=== PATIENT | female | born 1960 | race Caucasian/White ===

== ENCOUNTER 2025-06-04 05:27 | Observation (INO) ==
--- NOTE | 2025-04-22 14:09 | PAT Medication Instructions ---
Medication Instructions Date of Service April 22, 2025 Home Medications Lactobacillus acidophilus 10 billion cell capsule (Probiotic) 10,000 mmu cells PO DAILY albuterol sulfate 90 mcg/actuation aerosol inhaler 1 inh inhalation QID PRN Wheezing cholecalciferol (vitamin D3) 125 mcg (5,000 unit) tablet (Vitamin D3) 125 mcg PO DIRECTED gabapentin 600 mg tablet 600 mg PO TID ibuprofen 200 mg tablet (Advil) 200 mg PO Q6H PRN Pain levothyroxine 88 mcg tablet 88 mcg PO QAM omeprazole 20 mg capsule,delayed release 20 mg PO QAM MEDICATION INSTRUCTIONS: Continue as directed albuterol sulfate 90 mcg/actuation aerosol inhaler 1 inh inhalation QID PRN Wheezing (use if needed; BRING TO HOSPITAL) ASK your surgeon for instructions ibuprofen 200 mg tablet (Advil) 200 mg PO Q6H PRN Pain DO NOT take the morning of surgery cholecalciferol (vitamin D3) 125 mcg (5,000 unit) tablet (Vitamin D3) 125 mcg PO DIRECTED Lactobacillus acidophilus 10 billion cell capsule (Probiotic) 10,000 mmu cells PO DAILY Take morning of surgery With a small sip of water, OTHERWISE NOTHING TO EAT OR DRINK AFTER MIDNIGHT: gabapentin 600 mg tablet 600 mg PO TID levothyroxine 88 mcg tablet 88 mcg PO QAM omeprazole 20 mg capsule,delayed release 20 mg PO QAM Take evening before surgery gabapentin 600 mg tablet 600 mg PO TID Other Notes If you have any questions please call us at [phone] or [phone] or [phone] or [phone]
--- NOTE | 2025-04-29 10:01 | Anesthesiology Consultation ---
Date of Service April 29, 2025 Assessment & Plan (1) Encounter for pre-operative examination: Chart Review Chart Review: Acceptable Risk for Surgery (pending surgeon ordered PCP clearance ) and Patient NOT seen in Pre Admission Testing - Awaiting PCP clearance 05/07/25 (Clarissa GUZMAN- [place])- please send labs and EKG for PCP review Pt currently scheduled as 23 hours observation. If surgeon decides to change patient to [facility], patient would be acceptable risk for TKA, pending patient is motivated, has good support and surgeon's office completes [facility] preop requirements. Per PAT appt on 04/29/25, no recent illness/disease exposures, illness related symptoms, or recent illness/disease positive tests. Will leave to surgeon's discretion if preop Covid testing needed Teaching & Discussion Pre-Anesthesia Teaching/Discussion Notes: Instructed NPO after midnight before surgery,except medications with 15 cc of water. Medication instructions provided according to the PAT guidelines. History Surgery Operation Date: 06/04/25 07:00 Proposed Procedures p Right Total Knee Arthroplasty - Fabricio Alves MD Height/Weight Height: 5 ft 2 in Weight: 91.3 kg Allergies Allergy/AdvReac Type Severity Reaction Status Date / Time hydromorphone [From Dilaudid] Allergy Severe see below Verified 04/22/25 13:05 morphine Allergy Severe Vomiting Verified 04/22/25 13:05 Medications Home Medications Medication Instructions Recorded Confirmed Last Taken Lactobacillus acidophilus 10 10,000 mmu cells PO DAILY 04/22/25 04/22/25 Unknown billion cell capsule (Probiotic) albuterol sulfate 90 mcg/actuation 1 inh inhalation QID PRN Wheezing 04/22/25 04/22/25 Unknown aerosol inhaler cholecalciferol (vitamin D3) 125 125 mcg PO DIRECTED 04/22/25 04/22/25 Unknown mcg (5,000 unit) tablet (Vitamin D3) gabapentin 600 mg tablet 600 mg PO TID 04/22/25 04/22/25 Unknown ibuprofen 200 mg tablet (Advil) 200 mg PO Q6H PRN Pain 04/22/25 04/22/25 Unknown levothyroxine 88 mcg tablet 88 mcg PO QAM 04/22/25 04/22/25 Unknown omeprazole 20 mg capsule,delayed 20 mg PO QAM 04/22/25 04/22/25 Unknown release Past Medical History Medical History Chronic back pain GERD (gastroesophageal reflux disease) well controlled and stable Heel spur Left foot- does cause pain- PT not effective History of COVID-2019 > continues to have chronic cough ever since, prn inh for this, no asthma dx per pt History of postoperative nausea and vomiting Hypothyroidism Osteoarthritis Scar tissue in lung per pt from covid Sleep apnea cpap Slow to wake up after anesthesia Exercise / Class Metabolic Activity II 4-5 Yardwork/Stairs/Walk up hill (one flight of stairs - no chest pain or SOB ) Past Surgical History Surgical History History of section x3 History of cholecystectomy History of colonoscopy History of esophagogastroduodenoscopy (EGD) History of partial hysterectomy History of rectal fissure botox surgical procedure to correct this Past Anesthesia History No Hx of Anesthesia Complications (with exception to PONV and slow to wake - just groggy- no reintubation or ICU stay ) and No Family Hx of Anesthesia Complications History of PONV History of PONV (improved with IV anti nausea medication pre, nicola and post operatively) and Hx of Motion Sickness Social History Smoking Status: Current every day smoker Smoking cigarettes per day: 5 cigs per day> advised npo Do You Dip or Chew Tobacco: No Hx Alcohol Use: No Hx Substance Use: No substance use type: does not use Review of Systems - Hx of cough- chronic since Covid infection (2019) - stable Patient denies chest pain, shortness of breath, dyspnea on exertion, wheezing, palpitations. No hx of seizures, stroke, [place]. No hx of blood clots or blood transfusions Physical Exam Vital Signs VITALS BP 117/75 P 72 TEMP 98.3 SP02 95% RESP 16 Constitutional no acute distress ENMT Mouth: no TMJ clicking Thyromental Distance: > or= 3.5 Finger Breadths (3.5) Mallampati Class: III Neck + short neck, + thick neck and + limited neck extension (mild) Respiratory normal respiratory effort; no respiratory distress Auscultation: lungs clear to auscultation bilaterally; no wheezes Cardiovascular Rate/Rhythm: regular rate and regular rhythm Heart Sounds: no murmur Vessels: no carotid bruit Musculoskeletal Spine: no pain with cervical ROM Extremities: extremities normal to inspection Psychiatric Orientation: alert Lab Results Anesthesia Preop Results Results Anesthesia Widget: WBC 5.46 K/ul (4.8-10.8) 04/29/25 Hgb 12.7 g/dl (12.0-16.0) 04/29/25 Hct 37.6 % (37.0-47.0) 04/29/25 Plt 168 K/uL (130-400) 04/29/25 Na 143 mmol/L (136-145) 04/29/25 K 3.6 mmol/L (3.5-5.1) 04/29/25 Cl 108 mmol/L (98-107) H 04/29/25 CO2 30 mmol/L (21-32) 04/29/25 BUN 9 mg/dl (6-23) 04/29/25 Creat 0.61 mg/dl (0.6-1.2) 04/29/25 Glucose Level 86 mg/dl (70-99(Fasting)) 04/29/25 PT 10.3 Seconds (9.0-12.0) 04/29/25 PTT 26 Seconds (21-31) 04/29/25 INR 0.9 (0.9-1.1) 04/29/25 Urine Color Yellow 04/29/25 Urine Appearance Clear (Clear) 04/29/25 Urine pH 8.5 (4.5-7.5) H 04/29/25 Urine Specific [place] 1.009 (1.000-1.030) 04/29/25 Urine Protein Negative (Negative) 04/29/25 Urine Glucose (UA) Negative (Negative) 04/29/25 Urine Ketones Negative (Negative) 04/29/25 Urine Blood Negative (Negative) 04/29/25 Urine Nitrite Negative (Negative) 04/29/25 Urine Bilirubin Negative (Negative) 04/29/25 Urine Urobilinogen Negative (Negative) 04/29/25 Urine Leukocyte Esterase Trace (Negative) H 04/29/25 Urine WBC (Auto) 0-5 /hpf (0-5) 04/29/25 Urine RBC (Auto) 0-2 /hpf (0-2) 04/29/25 Urine Hyaline Casts (Auto) 0-2 /lpf (0-2) 04/29/25 Urine Epithelial Cells (Auto) 0-2 /hpf (0-2) 04/29/25 Urine Bacteria (Auto) None Seen (None Seen) 04/29/25 Blood Type A Positive 04/29/25 Antibody Screen NEGATIVE 04/29/25 Testing Electrocardiogram Date: 04/29/25 Findings: + NSR @ (72bpm ) Low voltage QRS Poor R wave progression, consider anterior IL vs lead placement vs LVH (Discussed with Dr. Varner- good functional status, no significant known cardiac history; patient seeing PCP for clearance prior to surgery; no further/additional follow up needed at this time) Echocardiogram Date: 12/15/20 EF: 55-59% LV Function: normal RWMA: + none Other Findings: + diastolic dysfunction (Grade 1); no LVH Mild MR. Mild TR. Mild AR No pericardial effusion Normal IVC size and collapsibility with inspiration indicates a normal right atrial pressure of 3 mmHg Estimated PASP is [address] 02/17/2025 = redemonstration of bilateral groundglass densities without interval change from prior study, likely sequelae of prior COVID-pneumonia. No new focal consolidation.
--- NOTE | 2025-06-04 05:24 | History & Physical Bridge Note ---
Date of Service June 04, 2025 History & Physical Bridge Note I have examined the patient, reviewed the History & Physical and in the interval since the performance of the History & Physical I have noted the following changes of clinical significance: consent and site verified.emphasized the need for PT to avoid arthrofibrosis/DVT-PE and wound care to avoid infection .no changes noted
[2025-06-04] MEDS: LR 500ML BOLUS, THEN 15ML/HR IV SCH (06:13)
[2025-06-04] MEDS: LR 60ML/HR IV SCH (06:13)
[2025-06-04] MEDS ORDERED: DexMEDEtomidine HCL IV 100 MCG/ML VIAL IV ONE (06:23)
[2025-06-04] MEDS ORDERED: MIDAZOLAM HCL 1 MG/ML 2ML VIAL ONE (06:23)
[2025-06-04] MEDS ORDERED: LIDOCAINE 2% 2 ML VIAL/AMP(20MG/ML) INFIL ONE (06:23)
[2025-06-04] MEDS ORDERED: ONDANSETRON INJ 2 MG/ML 2 ML VIAL IV PRN ×2 (06:29→11:15)
[2025-06-04] MEDS ORDERED: PROMETHAZINE HCL 6.25 MG in SODIUM CHLORIDE 0.9% 50 ML IV PRN (06:29)
[2025-06-04] MEDS ORDERED: ATROPINE SULFATE 0.1 MG/ML 10ML SYR IV PRN (06:29)
[2025-06-04] MEDS ORDERED: PROPOFOL IV EMULSION 10 MG/ML 100 ML VIAL IV ONE ×4 (06:34→09:30)
[2025-06-04] MEDS ORDERED: BUPIVACAINE 0.5 % 5 MG/1 ML PF 10ML VIAL ONE (06:37)
[2025-06-04] MEDS ORDERED: BUPIVACAINE 0.25% PF 30 ML VIAL ONE (06:37)
[2025-06-04] MEDS: TRANEXAMIC ACID 1,000 MG **IV Pre-op IV SCH (06:42)
[2025-06-04] MEDS ORDERED: GLYCOPYRROLATE 0.2 MG/ML VIAL ONE (07:18)
[2025-06-04] MEDS ORDERED: DEXAMETHASONE SOD INJ 4 MG/ML VIAL ONE (07:21)
[2025-06-04] MEDS: ORTHO JOINT ANESTHETIC ONE (07:26)
[2025-06-04] MEDS ORDERED: ePHEDrine sulfate 50 MG/5 ML SYR ONE (07:30)
[2025-06-04] MEDS: ROPIV 0.5% 246mg, Ketorolac 30mg, EPINEPHrine 0.5mg in NSS INFIL SCH (08:10)
--- NOTE | 2025-06-04 08:34 | Post Operative Brief Note ---
Immediate Post Op Note Date of Surgery June 04, 2025 Pre & Post Diagnosis Operation Date: 06/04/25 07:00 <No data on this case meets the specified criteria> Osteoarthritis right knee with flexion varus deformity pre and postop diagnosis same I identified the patient and participated in the time-out.: Yes Procedure Operation Date: 06/04/25 07:00 <No data on this case meets the specified criteria> Cemented right total knee replacement Surgeon Fabricio Alves MD Vice President [employer] [facility] no resident or fellow available Estimated Blood Loss 20 Findings Consistent with Post-Op Diagnosis Grade 4 disease medial compartment marked varus deformity flexion varus patellofemoral disease grade 4 Fluids 1400 cc Complications None
--- NOTE | 2025-06-04 08:38 | Operative Report ---
Post Operative Report Pre & Post Diagnosis Operation Date: 06/04/25 07:00 <No d osteoarthritis right knee with flexion varus deformity isak on this case meets the specified criteria> I identified the patient and participated in the time-out.: Yes Procedure Operation Date: 06/04/25 07:00 <No data on this case meets the specified criteria> Cemented right total knee replacement Surgeon Fabricio Alves MD [employer] no resident or fellow available Estimated Blood Loss 20 Findings Consistent with Post-Op Diagnosis Severe disease medial compartment bipolar patellofemoral joint lateral compartment relatively well-preserved flexion varus deformity Fluids 1400 cc Specimens Bone pathology Drains None Complications None Description of Procedure After the patient was appropriate notified site verified consent verified antibiotics and TXA confirmed as being given the right lower extremity was prepped and draped use routine fashion. Tourniquet was inflated to 275 mmHg after exsanguination limb or other Esmarch fashion for total of 50 minutes. Exposure utilized parapatellar thyrotomy performed patella was incarcerated with contracture was released. Synovectomy completed medial release completed excellent exposure obtained menisci excised. Osteophytes around the margin of the femur excised. Distal femur entered digits resected tibia subluxated posterior horn menisci were excised. Distal femur cut 11 mm proximal tibia cut 4 mm extension gap was good with a 5 spacer. Tibia was sized to a 3 femur was sized to a 5 appropriate cutting block applied to the femur and anterior posterior, chamfer cuts made flexion gap checked was excellent posterior capsule injected with local anesthetic. Box cut then made a size 5 fit well and narrow would be better. The tibia was then broached reamed to a size 3 and then the 5 x 5 poly spacer trial was placed everything tracked well knee was stable. Alignment was excellent. Patella was then everted it was quite small and was resected leaving roughly 15 mm 32 button drill hole trial was then seated tracked well. Ortho mix was then injected about the knee all trial elements were removed the knee was then soaked in Betadine for 3 minutes and irrigated extremitas then cemented in position tibia femur patella in that order at 12 minutes the tourniquet deflated at 14 minutes knee was inspected no cement removal was required and he was irrigated with Pulsavac Betadine and the permanent liner seated the knee reduced and closed at 40 degrees of flexion with #2 Vicryl 2-0 Vicryl and stainless steel clips appropriate dressing was applied the patient transferred to recovery in satisfactory addition he tolerated the procedure well. Patient's was contacted. DVT PE prophylaxis to begin tomorrow. Summary of implants ATT UNE total knee system [employer] size right narrow femur posterior cruciate substituting size 3 rotating tibial tray platform tray size 5 x 5 poly posterior cruciate substituting with 32 mm patella 2 bags of [place] G cement. I attest to the content of the Intraoperative Record and any orders documented therein. Any exceptions are noted below.
--- NOTE | 2025-06-04 08:38 | Orthopedic Progress Note ---
Date of Service June 04, 2025 Orthopedic Progress Note Patient underwent right cemented total knee replacement tolerated the procedure well. She denies chest pain shortness of breath fever chills nausea vomiting headache. Vital signs are stable she is afebrile. Neurovascular check from sciatic nerve is normal. X-ray pending. Family contacted. Continue care pathway. Initiate DVT PE prophylaxis tomorrow.
--- NOTE | 2025-06-04 08:40 | Operative Report ---
Post Operative Report Pre & Post Diagnosis Operation Date: 06/04/25 07:00 Pre-Op Diagnosis: Right Knee Osteoarthritis Post-Op Diagnosis: Right Knee Osteoarthritis I identified the patient and participated in the time-out.: Yes Procedure Operation Date: 06/04/25 07:00 Actual Procedures p Right Total Knee Arthroplasty(Right) - Fabricio Alves MD Surgeon NAEEM Alves MD Glass Novelty Maker [facility] no resident or fellow available Estimated Blood Loss 20 Findings Consistent with Post-Op Diagnosis see operative report Specimens see operative report Drains none Complications none Disposition Accompanied Patient To Recovery: Yes Indications This 64 year old female presented to the office for complaints of persisting right knee pain. She had tried conservative care measures without improvement. She elected to proceed with surgical intervention after being educated about potential risks and outcomes. Preoperative imaging was obtained. Description of Procedure The patient was administered a spinal anesthetic and then taken to the operating room where she was given sedation. She was prepped and draped in the usual sterile fashion. Please see Dr. Alves's operative report for specifics of the procedure. I was present for the entire case from initial patient positioning through final wound closure. Assistance was provided for tissue retraction, hemostasis, trial implant placement, final implant placement, and final wound closure. The patient was taken to the recovery room in satisfactory condition. I attest to the content of the Intraoperative Record and any orders documented therein. Any exceptions are noted below.
--- NOTE | 2025-06-04 09:30 | XRay Report ---
XR knee RT 1 or 2V routine CLINICAL HISTORY: S/P R TKA COMPARISON: 02/03/2025 FINDINGS: Right knee prosthesis shows no hardware complication. There is expected soft tissue gas. S kin yeimi are present. IMPRESSION: Unremarkable postoperative exam. ACT 112: Negative or not required by law. Electronically signed by: Awais Childs M.D. 06/04/2025 9:29 AM
[2025-06-04] MEDS ORDERED: MAGNESIUM HYDROXIDE SUSP 30 ML UDC PO PRN (10:56)
[2025-06-04] MEDS ORDERED: HYDROmorphone INJ 0.5 MG/0.5 ML SYR IV PRN (10:56)
[2025-06-04] MEDS ORDERED: diphenhydrAMINE 50 MG/ML VIAL IV PRN (10:56)
[2025-06-04] MEDS ORDERED: ALUMINUM/MAGNESIUM SUSP 30 ML UDC PO PRN (10:56)
[2025-06-04] MEDS ORDERED: NALOXONE HCL 0.4 MG/1 ML VIAL/CARP IV PRN (10:56)
[2025-06-04] MEDS ORDERED: ALBUTEROL HFA 8 GM INHALER INH PRN (11:00)
[2025-06-04] MEDS ORDERED: METOCLOPRAMIDE HCL INJ 5 MG/ML 2 ML VIAL IV PRN (11:00)
[2025-06-04] MEDS: SODIUM CHLORIDE 0.9% 1,000 ML IV SCH (11:33)
--- NOTE | 2025-06-04 11:44 | Discharge Summary ---
Date of Service June 05, 2025 Admission HPI Per Admitting Provider Right knee pain Osteoarthritis with flexion varus deformity. Principal Diagnosis Osteoarthritis right knee status post cemented right total knee replacement Discharge Data Allergies Allergy/AdvReac Type Severity Reaction Status Date / Time hydromorphone [From Dilaudid] AdvReac Severe see below Verified 06/04/25 05:38 morphine AdvReac Severe Vomiting Verified 06/04/25 05:38 Vaccinations None Consultations None Procedures Performed Operation Date: 06/04/25 07:00 Actual Procedures p Right Total Knee Arthroplasty(Right) - Fabricio Alves MD Ordered Studies 06/04/25 05:00 US - OR guided needle placemen Routine Hospital Course (1) Status post right knee replacement: Plan Care pathway for right total knee replacement Total Time Total Time Spent Total Time Spent (In Minutes): 10 Discharge Plan Discharge Items Patient Disposition: Home - Home Health Services Reason For Visit: Right Knee Osteoarthritis Discharge Diagnosis: Right knee s/p total knee replacement Condition on Discharge: Good Goals: Obtain range of motion from near 0 to near 120 degrees of flexion. Activity: Per Instructions section Lifting: No more than 5 pounds Bathing: Keep incision dry Sexual Activity: Wait until after follow-up appointment Exercise/Sports: Wait until after follow-up appointment Driving/Machine Use: No driving while on narcotics and not till after 6 weeks postop. Weightbearing: Full weightbearing Weightbearing Comment: Full weightbearing Non-emergency contact: Surgeon Call non-emergency contact if: you have any medication questions, your pain is not controlled, your temperature is above 101, your wound has increased redness, your wound has increased drainage and your wound pain has increased Follow-up/Referrals: Dylan Gunter PA-C [Physician Color Mixer] - 06/19/25 1:30 pm PCP,NO [Physician] - Diet: Regular Diet Comment: Resume preop diet Addtl Attending Provider Instructions: New Medicine: * You will likely be taking one or more of these medications: 1. Percocet - Take, as directed, when you need it, every four to six hours to control your pain. 2. Iron Sulfate - Take 1x each day for the month after surgery to help you replace the blood lost during surgery. 3. Eliquis - Thins your blood to lessen the chance of forming a blood clot. * The most common side effects of pain medicine and iron are nausea and constipation. If nausea or constipation is too much of a problem or if you have any questions about your new medicines or doses, call [facility] at . We will try to help you manage these issues. "VERY IMPORTANT TO READ AND REVIEW" Blood Clots and Blood Thinning Medicine: * You are given Eliquis during the immediate post-operative period to lessen the risk of blood clots forming in your legs and/or lungs. It is usually given for six weeks after surgery. Pain: * The immediate post-operative period after knee replacement surgery is often quite painful. * You are given a prescription for pain medicine. You should take it, as directed, when you need it, especially before physical therapy and before going to bed. Pain that interferes with sleep is very common and can last several months. * You will likely need pain medicine for the first four to six weeks. It will not stop all of the pain. The pain will lessen and as you feel better, you may change to milder pain medicine such as Tylenol. * The most common side effects of pain medicine are nausea and constipation, so don't take more than you need. Physical Therapy: * You will have physical therapy two or three times each week for four to six weeks after your surgery in order to regain your knee range of motion and to retrain your knee to work properly. * It is just as important to make sure you are getting your knee perfectly straight as it is to regain your knee bend. * Taking a pain pill an hour before therapy can help you have a more productive and comfortable therapy session if needed. Home Exercise: * You were shown a series of exercises (heel props, heel slides, etc.) in the hospital. Do these exercises three to four times each day including the exercises you were shown in physical therapy. Walking: * Get up and walk several times each day. For the first four weeks, try not to stand or walk for more than one hour at a time. If you do stand or walk for more than one hour, you will not hurt anything, but your knee and leg will likely swell. * As you feel comfortable, you may change from the walker or crutches to a cane and then to independent walking. SELF CARE INSTRUCTIONS AFTER TOTAL KNEE REPLACEMENT A. You may need to continue a physical therapy program after discharge from the hospital. There are several options available to you. Your doctor will assist you in selecting the best one for you. 1. An out-patient facility 2 to 3 times a week for therapy or home therapy. 2. Continue working on all exercises taught to you in the hospital. Your goals should be to increase bending of your knee to 90 degrees and beyond and to fully straighten your knee. B. You may progress at your own pace from walking with a walker or crutches to a cane; then to no assistive devices. C. Make walking a part of your daily routine. Be up as much as comfortable with rest periods throughout the day. Rest with leg elevation is very important. Use the ice wrap frequently for the first 3-4 weeks. D. There are no restrictions on activities. You may ride in a car, shop, participate in detention attendant and all social activities. E. Wear the long elastic stockings (DINA hose) 20 hours a day for six weeks after surgery. They can be removed several times a day for laundering and for a shower. F. Do not place a pillow behind your knee when resting. A pillow at your ankle is okay. G. You may return to previous diet. VERY IMPORTANT TO READ AND REVIEW A. Take Eliquis (blood thinning medication) as directed by your doctor. B. There are a few signs you need to watch for after you are home. Call [facility] if you notice any of the followin. Increased severe knee pain. Some pain is expected especially when you exercise. 2. Increased swelling in your leg or knee; pain or swelling of the calf muscle in either lower leg. 3. Any fluid drainage from the incision. 4. Shortness of breath or chest pain. C. Please call [facility] at if you have any concerns or questions about your operation or recovery. The doctor or his nurse will return your call promptly. D. You must take antibiotics before dental work, bladder, bowel or other surgery. Call the office to obtain a prescription at least 2 days prior to your appointment. * CALL IF INCREASED PAIN, REDNESS, DRAINAGE OR FEVER GREATER THAT 101. * Sutures should be removed 12-14 days after surgery unless you are on chronic steroids, then it will be 14-18 days after surgery. Call your doctor if: * Temperature above 101 degrees F. * Pain not relieved by pain medicine ordered. * Increased drainage or redness from incision. * Notify your doctor with any questions or concerns. MEDICATIONS: * Please take your prescriptions as instructed at your pre-op appointment and/or see medication discharge instructions listed above. * If concerns develop, call your physician's office at . SPECIAL CARE INSTRUCTIONS: * Ice/Elevate as instructed. * Keep dressing clean, dry, intact. * Your surgical extremity may be discolored due to prepping agents used on the skin. A bluish-green tint is a normal variant and should not cause alarm. Call your doctor at [phone] if: * Temperature above 101 degrees * Pain not relieved by pain medicine ordered * There is increased drainage or redness from any incision * You have any unanswered questions, problems or concerns. FOLLOW UP VISIT: * If not already scheduled, please call the office at to schedule a follow-up appointment. Use your walker for ambulation ice and elevate the knee frequently to reduce pain/swelling use your knee immobilizer when out of bed today and tomorrow. It can be discontinued entirely on Monday morning. Start your Eliquis tonight. Take it 2x per day. Pending Studies at Discharge: Yes (Bone pathology) Studies:: bone pathology Stand-Alone Forms: My [facility], Smoking Cessation Medications and DC Order Prescriptions: New Eliquis 2.5 mg tablet 2.5 mg PO BID Qty: 80 0RF oxycodone-acetaminophen [Percocet] 5-325 mg tablet 2 tab PO Q6H PRN (Reason: pain) Qty: 20 0RF Rx Instructions: initial script No Action gabapentin 600 mg Tablet 600 mg PO TID levothyroxine 88 mcg Tablet 88 mcg PO QAM ibuprofen [Advil] 200 mg Tablet 200 mg PO Q6H PRN (Reason: Pain) omeprazole 20 mg Capsule,Delayed Release(Dr/Ec) 20 mg PO QAM albuterol sulfate 90 mcg/actuation Hfa Aerosol Inhaler 1 inh INHALATION QID PRN (Reason: Wheezing) cholecalciferol (vitamin D3) [Vitamin D3] 125 mcg (5,000 unit) Tablet 125 mcg PO DIRECTED Patient Comments: every other week Probiotic 10 billion cell Capsule 10,000 mmu cells PO DAILY Admission Data Admit Date/Time: 06/04/25 08:48 Attending Provider: Fabricio Alves Admit Provider: Fabricio Alves Primary Care Provider: Clarissa Yates Other Providers: [facility]
--- NOTE | 2025-06-04 11:49 | Anesthesiology Progress Note ---
Date of Service June 04, 2025 Anesthesia Post Procedure Vital Signs Vital Signs: Temp Pulse Pulse Resp BP BP Pulse Ox 06/04/25 11:20 36.4 C L 64 16 131/81 100 06/04/25 10:50 36.3 C L 69 16 115/73 96 06/04/25 10:20 36.3 C L 67 16 121/73 95 06/04/25 10:00 63 16 127/85 97 06/04/25 09:50 56 L 18 128/86 98 06/04/25 09:40 57 L 18 129/84 97 06/04/25 09:25 36.4 C L 63 18 133/86 95 06/04/25 09:15 70 18 127/84 95 06/04/25 09:05 65 20 122/81 94 06/04/25 08:55 79 18 121/83 94 06/04/25 08:45 74 22 119/76 95 06/04/25 08:37 36.4 C L 72 18 130/74 96 06/04/25 05:40 06/04/25 05:40 36.8 C 64 20 126/89 97 O2 Del Method O2 Flow Rate 06/04/25 11:20 Nasal Cannula 2 06/04/25 10:50 Nasal Cannula 2 06/04/25 10:20 Nasal Cannula 2 06/04/25 10:00 Nasal Cannula 2 06/04/25 09:50 Nasal Cannula 2 06/04/25 09:40 Nasal Cannula 2 06/04/25 09:25 Nasal Cannula 2 06/04/25 09:15 Oxymask 4 06/04/25 09:05 Oxymask 4 06/04/25 08:55 Oxymask 4 06/04/25 08:45 Oxymask 6 06/04/25 08:37 Oxymask 6 06/04/25 05:40 Room Air, CPAP 06/04/25 05:40 Room Air, CPAP Pain Intensity Right Knee: Pain Intensity: 0 Transfer of Care Handoff Completed per policy Notes Mental Status: alert / awake / arousable and participated in evaluation Patient Amnestic to Procedure: Yes Nausea / Vomiting: adequately controlled Pain: adequately controlled Airway Patency, RR, SpO2: stable & adequate BP & HR: stable & adequate Hydration State: stable & adequate Neuraxial Anesthesia: was administered and sensory block is resolving Anesthetic Complications: no major complications apparent and Pt Satisfied with anesthetic care
[2025-06-04] MEDS: DOCUSATE SODIUM 100 MG CAP PO SCH (12:25)
[2025-06-04] MEDS: KETOROLAC 30 MG/ML VIAL IV SCH (12:25)
[2025-06-04] MEDS: MULTIVITAMIN TAB PO SCH (12:25)
[2025-06-04] MEDS: ACETAMINOPHEN 500 MG TAB PO SCH (15:02)
[2025-06-04] MEDS: GABAPENTIN 600 MG TAB PO SCH (15:02)
[2025-06-04] MEDS: FERROUS GLUCONATE 324 MG TAB PO SCH (17:15)
[2025-06-04] MEDS: ASCORBIC ACID 500 MG TAB PO SCH (17:15)
[2025-06-04] MEDS: SENNA 8.6 MG TAB PO SCH (20:24)
[2025-06-05] MEDS: LEVOTHYROXINE SODIUM 88 MCG TABLET PO SCH (05:40)
[2025-06-05 07:11] LABS: Hematocrit (blood only) 36.4 % (37.0-47.0); Hemoglobin 12.2 g/dl (12.0-16.0); Mean Corpuscular Hemoglobin 31.3 pg (25.0-34.0); Mean Corpuscular Volume 93.3 fL (80.0-100.0); Platelet Count 199 K/uL (130-400); RDW Standard Deviation 45.5 fL (36.4-46.3); Red Blood Count 3.90 M/uL (4.20-5.40); White Blood Count 13.95 K/ul (4.8-10.8)
--- NOTE | 2025-06-05 07:28 | Orthopedic Progress Note ---
Date of Service June 05, 2025 Assessment & Plan Admission and Anticipated Discharge Date Admission Date: June 04, 2025 Orthopedic Progress Note Postop day #1 status post right total knee replacement. Patient is resting comfortably in bed. Denies chest pain shortness of breath fever chills nausea vomiting or headache. Vital signs are stable she is afebrile. Neurovascular check normal sciatic nerve is normal. Wound dressing is changed wound is clean and dry. Neurovascular check from sciatic nerve is normal calf nontender. Wound redressed. A.m. labs are excellent. Assessment at this point doing well discharged home after PT OT. Initiate anticoagulation today. Follow-up in 2 weeks.
[2025-06-05 07:31] LABS: Anion Gap 8.0 (3-11); Blood Urea Nitrogen 16.0 mg/dl (6-23); Calcium 9.4 mg/dl (8.6-10.3); Carbon Dioxide 27.0 mmol/L (21-32); Chloride 106.0 mmol/L (98-107); Creatinine Clr Calc Pharmacy 86.1 ml/min; Glucose 104.0 mg/dl (70-99(Fasting)); Potassium 4.2 mmol/L (3.5-5.1); Sodium 141.0 mmol/L (136-145)
[2025-06-05] MEDS: dexAMETHasone 10 MG in SYRINGE 0 ML IV SCH (07:52)
[2025-06-05] MEDS: APIXABAN 2.5 MG TAB PO SCH (07:53)
== END 2025-06-05 10:55 | disposition home health service (06) ==
LOC: 3E 05:27 → ASU 05:27